=== PATIENT | male | born 1970 | race Caucasian/White ===

== ENCOUNTER 2018-10-03 16:09 | Emergency (ER) | payer SELFPAY ==
[~2018-10-03] VITALS: Ht 185.4 cm; Wt 81.8 kg
[2018-10-03 16:21] VITALS: BP 102/60; PULSE 80; RESP 18; Ht 185.4 cm; Wt 81.8 kg
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
== END 2018-10-03 17:25 | disposition left against medical advice (07) ==
LOC: FTE 16:09
DX: S01.81XA Laceration without foreign body of other part of head, initial encounter (principal); Y09 Assault by unspecified means; Y92.9 Unspecified place or not applicable
CPT/HCPCS: 99283